=== PATIENT | female | born 1980 ===

== ENCOUNTER 2020-12-19 07:29 | Outpatient (CLI) | payer OTHER ==
[~2020-12-19 07:29] MED LIST: ALTACE2.5 MG PO; CARDIZEM CD240 MG PO
== END 2020-12-19 07:36 | disposition home or self-care (01) ==
LOC: NUCLEAR 07:29
PROVIDERS: ATTEND Internal Medicine Pulmonary Disease
DX: I27.20 Pulmonary hypertension, unspecified (principal)

== ENCOUNTER 2020-12-19 15:10 | Outpatient (CLI) | payer OTHER | END 2020-12-19 15:25 | disposition home or self-care (01) | LOC: PPH VACUNA 15:10 | PROVIDERS: ATTEND Emergency Medicine Pediatric Emergency Medicine | DX: Z23 Encounter for immunization (principal) ==